=== PATIENT | female | born 1990 | race African-American/Black ===

== ENCOUNTER 2018-05-07 11:26 | Emergency (ER) | payer MEDICAID, OTHER ==
[~2018-05-07] VITALS: Ht 160 cm; Wt 89.4 kg
[~2018-05-07 11:26] MED LIST: IBUPROFEN800 MG ORAL; KEFLEX500 MG ORAL
--- NOTE | 2018-05-07 13:15 | Emergency Room Report ---
History of Present Illness General Chief Complaint: General Complaint Source: Patient Present Illness HPI 28-year-old female presents to the emergency department sent by PCP for EKG. Patient denies chest pain, shortness of breath, dyspnea, palpitations or cough. Patient states that her PCP wanted to obtain EKG before she prescribes any medications. Patient does not know what medication PCP was considering. She denies symptoms at this time. She denies cardiac history or significant familial cardiac history. Allergies: Coded Allergies: No Known Allergies (Unverified , 12/20/14) Patient History Past Medical History: see triage record Past Surgical History: none Pertinent Family History: none Last Menstrual Period: / Now: No : 1 Para: 0 Reviewed Nursing Documentation: PMH: Agreed; PSxH: Agreed Nursing Documentation-PMH Past Medical History: No Stated History Review of Systems All Other Systems: negative except mentioned in HPI Physical Exam Vital Signs Date Time Temp Pulse Resp B/P (MAP) Pulse Ox O2 Delivery O2 Flow Rate FiO2 05/07/18 11:51 98.4 70 18 129/78 96 Room Air 98.4 Sp02 EP Interpretation: reviewed, normal General Appearance: no apparent distress, alert, GCS 15, non-toxic Head: normocephalic, atraumatic ENT: hearing grossly normal, normal voice Neck: full range of motion Respiratory: chest non-tender, lungs clear, normal breath sounds, speaking full sentences Cardiovascular #1: regular rate, rhythm Musculoskeletal: back normal, gait/station normal, normal range of motion, non- tender Neurologic: alert, oriented x3, responsive, motor strength/tone normal, sensory intact, speech normal, grossly normal Psychiatric: judgement/insight normal Skin: normal color, no rash, warm/dry, well hydrated Medical Decision Making PA Attestation Dr. Wayne is my supervising Physician whom patient management has been discussed with. Diagnostic Impression: Primary Impression: Encounter for medical screening examination ER Course 28-year-old female presents to the emergency department sent by PCP for EKG. Patient denies chest pain, shortness of breath, dyspnea, palpitations or cough. Patient states that her PCP wanted to obtain EKG before she prescribes any medications. Patient does not know what medication PCP was considering. She denies symptoms at this time. She denies cardiac history or significant familial cardiac history. Ddx considered but are not limited to AMS, ETOH, infection, Trauma/Fall, CVA, SC , Psych, homelessness Vital signs: are WNL, pt. is afebrile H&PE are most consistent with Normal MSE- no acute injury or disease noted at this time. pt. is NAD, NON-toxic, able to answer questions appropriately, pt. is oriented, and no signs of trauma or focal neurological deficits. ORDERS: -EKG ED INTERVENTIONS: None required at this time Pt. is stable for close outpatient follow up. DISCHARGE: At this time pt. is stable for d/c to home. Will provide printed patient care instructions, and any necessary prescriptions. Care plan and follow up instructions have been discussed with the patient prior to discharge. EKG Diagnostic Results EP Interpretation: Dr. Wayne Rate: normal - 64 BPM Rhythm: NSR ST Segments: no acute changes ASA given to the pt in ED: No PA Scribe Text This Interpretation was scribed by ELLEN Pizano. Last Vital Signs Date Time Temp Pulse Resp B/P (MAP) Pulse Ox O2 Delivery O2 Flow Rate FiO2 05/07/18 11:51 98.4 70 18 129/78 96 Room Air 98.4 Disposition: HOME, SELF-CARE Condition: Stable Referrals: [facility]ERR[facility] (PCP) Patient Instructions: Medical Screening Exam Additional Instructions: Take any previously prescribed medications as directed. Follow up with a Primary Care Provider in 3-5 days, even if your symptoms have resolved. Return sooner to ED if new symptoms occur, or current symptoms become worse. - Please note that this Emergency Department Report was dictated using [employer] operator technology software, occasionally this can lead to erroneous entry secondary to interpretation by the dictation equipment. Connie Pizano May 07, 2018 13:15
[2018-05-07 13:51] VITALS: BP 127/83
== END 2018-05-07 13:54 | disposition home or self-care (01) ==
LOC: EMR 12:35
DX: Z13.89 Encounter for screening for other disorder (principal)
CPT/HCPCS: 93005; 99283